=== PATIENT | male | born 1955 | race Hispanic/Latino ===

== ENCOUNTER 2021-08-05 18:35 | Inpatient (IN) | payer MEDICARE ==
[2021-08-05] MEDS ORDERED: Neomycin-Polymyxin 1 ML AMP ONE ×2 (19:18→19:19)
[2021-08-05] MEDS ORDERED: Fentanyl 100 MCG/2 ML VIAL ONE ×2 (19:54→21:52)
[2021-08-05] MEDS ORDERED: Insulin Regular 300 UNITS/3 ML VIAL ONE ×3 (20:03→21:52)
[2021-08-05] MEDS ORDERED: Ketorolac Tromethamine 30 MG/ML VIAL ONE (20:22)
[2021-08-05] MEDS ORDERED: Lidocaine 1% PF 5 ML VIAL ONE (20:22)
[2021-08-05] MEDS ORDERED: Ondansetron PF 4 MG/2 ML Vial ONE (20:22)
[2021-08-05] MEDS ORDERED: ePHEDrine 50 MG/ML VIAL ONE (20:22)
[2021-08-05] MEDS ORDERED: PROPOFOL 200 MG/20 ML VIAL ONE (20:22)
[2021-08-05] MEDS ORDERED: PHENYLEPHRINE-NS 100 MCG/ML 10 ML SYRINGE ONE (20:22)
[2021-08-05] MEDS ORDERED: Succinylcholine 200 MG/10 ml SYRINGE FS ONE (20:22)
[2021-08-05] MEDS ORDERED: Bupivacaine 0.25% HCL 30 ML VIAL ONE (20:35)
[2021-08-05] MEDS ORDERED: Lidocaine 1% (PF) 30 ML VIAL ONE (20:35)
[2021-08-05] MEDS ORDERED: Albumin 5% 500 ML ONE (20:54)
[2021-08-05] MEDS ORDERED: Ondansetron HCl/PF 4 MG/2 ML Vial IVP PRN (21:53)
[2021-08-05] MEDS ORDERED: Promethazine HCl 25 MG/ML VIAL IVPB PRN (21:53)
[2021-08-05] MEDS ORDERED: Meperidine HCl/PF 25 MG/ML VIAL SLOW IVP PRN (21:53)
[2021-08-05] MEDS ORDERED: Dextrose 5% in Water 1,000 ML IV PRN (21:59)
[2021-08-05] MEDS ORDERED: Dextrose 50% Abboject 50 ML SYRINGE SLOW IVP PRN (21:59)
[2021-08-05] MEDS ORDERED: Insulin Regular 300 UNITS/3 ML VIAL IVP SCH (22:00)
[2021-08-05] MEDS ORDERED: Ondansetron PF 4 MG/2 ML Vial IVP PRN (22:02)
[2021-08-05] MEDS ORDERED: Ondansetron ODT 4 MG TAB PO PRN (22:02)
[2021-08-05] MEDS ORDERED: hydrALAZINE 20 MG/ML VIAL SLOW IVP PRN (22:02)
[2021-08-05] MEDS ORDERED: Insulin Regular 300 UNITS/3 ML VIAL SC PRN ×2 (22:02)
[2021-08-05] MEDS ORDERED: Morphine 4 MG/ML VIAL SLOW IVP PRN ×2 (22:04→22:11)
[2021-08-05] MEDS ORDERED: traMADol HCl 50 MG TAB PO PRN (22:06)
[2021-08-05] MEDS ORDERED: Cyclobenzaprine 10 MG TAB PO PRN (22:06)
[2021-08-05] MEDS ORDERED: HYDROcodone/Acetaminophen 5/325 mg Tablet PO PRN ×2 (22:07)
[2021-08-05] MEDS ORDERED: traMADol HCl 50 MG TAB PO SCH (22:15)
[2021-08-05] MEDS ORDERED: Cephalexin 250 MG CAP PO SCH (22:15)
[2021-08-05] MEDS: traMADol HCl 50 MG TAB PO SCH (23:46)
[2021-08-05] MEDS: Cephalexin 250 MG CAP PO SCH (23:46)
[2021-08-05] MEDS: Sodium Chloride 0.9% 1,000 ML IV SCH (23:53)
[2021-08-06 04:01] VITALS: BMI 38.0
[2021-08-06] MEDS: traMADol HCl 50 MG TAB PO SCH ×2 (05:59→11:26)
[2021-08-06] MEDS: Cephalexin 250 MG CAP PO SCH ×2 (05:59→11:26)
[2021-08-06 07:22] LABS: #Eosinphils 0.2 thou/uL (0.0-0.7); #Lymphocytes 3.4 thou/uL (1.20-3.40); #Neutrophils 6.4 thou/uL (1.40-6.50); %Basophils 0.2 % (0.0-1.0); %Eosinophils 1.7 % (0.0-10.0); %Lymphocytes 30.4 % (21.0-51.0); %Monocytes 9.5 % (0.0-10.0); %Neutrophils 58.3 % (42.0-75.0); Mean Corpuscular HGB CONC 34.2 g/dL (32.0-36.0); Mean Corpuscular Hemoglobin 31.8 pg (27.0-31.0); Mean Corpuscular Volume 93.1 fL (78.0-98.0); Platelet Count 177 thou/uL (130-400); RBC Distribution Width 11.9 % (11.5-14.5); Red Blood Cell (RBC) Count 4.39 mill/uL (4.70-6.10)
[2021-08-06 07:33] LABS: Anion Gap 13 mmol/L (10-20); BUN (Urea Nitrogen) 13 mg/dL (8.4-25.7); Calc. Creatinine Clearance 101 mL/min (70-130); Calcium 7.9 mg/dL (7.8-10.44); Carbon Dioxide 22 mmol/L (23-31); Chloride 104 mmol/L (98-107); Glucose 252 mg/dL (80-115); Magnesium 2.1 mg/dL (1.6-2.6); Phosphorus 2.5 mg/dL (2.3-4.7); Potassium 4.1 mmol/L (3.5-5.1); Sodium 135 mmol/L (136-145)
[2021-08-06] MEDS ORDERED: metFORMIN 500 MG TAB PO SCH (08:00)
[2021-08-06] MEDS: Acetaminophen 500 MG TAB PO SCH ×2 (08:44→14:04)
[2021-08-06] MEDS: Sodium Chloride 0.9% 1,000 ML IV SCH (08:45)
[2021-08-06] MEDS ORDERED: glipiZIDE 10 MG TAB PO SCH (09:00)
[2021-08-06] MEDS ORDERED: Atorvastatin Calcium 10 MG TAB PO SCH (09:00)
[2021-08-06] MEDS ORDERED: Hydrocortisone 10 mg Tablet PO SCH (09:00)
[2021-08-06] MEDS ORDERED: Gabapentin 300 MG CAP PO SCH (09:00)
[2021-08-06] MEDS ORDERED: HYDROCORTISONE 20 MG PO SCH (09:00)
[2021-08-06] MEDS ORDERED: Lisinopril 10 MG TAB PO SCH (09:00)
[2021-08-06] MEDS ORDERED: Levothyroxine Sodium 125 MCG TAB PO SCH (09:00)
[2021-08-06] MEDS ORDERED: Sodium Phosphate 30 MMOL in Sodium Chloride 0.9% 250 ML 250 ML IVPB SCH (09:00)
[2021-08-06 16:20] VITALS: BP 121/75; TEMP 97.8
== END 2021-08-06 15:43 | disposition home or self-care (01) | DRG 514 ==
LOC: ERS 18:35 → SDC/OP 19:45 → SURG B 20:00
PROVIDERS: ADMIT Surgery Surgery of the Hand; ATTEND Surgery Surgery of the Hand
PROC: 0PHQ34Z Insertion of Internal Fixation Device into Left Metacarpal, Percutaneous Approach (ICD-10-PCS; principal; 2021-08-05)
DX: S62.327B Displaced fracture of shaft of fifth metacarpal bone, left hand, initial encounter for open fracture (principal); Y24.9XXA Unspecified firearm discharge, undetermined intent, initial encounter; E78.00 Pure hypercholesterolemia, unspecified; I10 Essential (primary) hypertension; S62.317B Displaced fracture of base of fifth metacarpal bone, left hand, initial encounter for open fracture; E78.5 Hyperlipidemia, unspecified; E11.65 Type 2 diabetes mellitus with hyperglycemia; Z96.653 Presence of artificial knee joint, bilateral; F17.220 Nicotine dependence, chewing tobacco, uncomplicated; Y92.9 Unspecified place or not applicable
CPT/HCPCS: 36415; 36416; 76000; 80048; 83735; 84100; 85025; J1815; J1885; J2001; J2405; J2704; J3010; J3490; J7050; P9045; S0020